=== PATIENT | female | born 1940 | race Caucasian/White ===

== ENCOUNTER 2022-11-09 05:25 | Day surgery (SDC) | payer MEDICARE, OTHER ==
[2022-11-09] VITALS (13 sets, daily range): BP systolic 95–161; BP diastolic 51–81; PULSE 73–96; TEMP 97.8–98.5
[~2022-11-09] VITALS: Ht 154.9 cm; Wt 65.5 kg
[~2022-11-09 05:25] MED LIST: PERCOCET 325 MG1 TAB PO
[2022-11-09] MEDS ORDERED: PHENERGAN25 MG RC (05:54)
--- NOTE | 2022-11-09 11:37 | NUR ---
Patient arrived to the unit from PACU at 1120. Patient drowsy but easily to arouse. Pulse present at right upper extremity. Sling and Ice pack applied to the shoulder. Patient rated pain level 7/10. Family at the bedside and oriented to room and the use of call acuna. Will continue to monitor patient. Call acuna within reach.
--- NOTE | 2022-11-09 12:44 | NUR ---
Patient resting comfortable and does not appear to be in a distress. VSS , family members at the bedside. Ice pack and sling in place.
--- NOTE | 2022-11-09 13:01 | NUR ---
Patient c/o feeling nauseous . Patient is not due for medication for n/v. Cool compress apply to the the neck. Patient is doing much better and carry on good conversation. Spirite offered per patient's request. Will continue to monitor patient.
--- NOTE | 2022-11-09 15:25 | NUR ---
Assisted patient to the bathroom to void. Patient tolerated it well/
--- NOTE | 2022-11-09 18:30 | NUR ---
Patient resting in bed using the incentive spirometer . No drainage noted on aquacell dressing to the right shoulder, sling in place. Patient voice no concern at this time.
--- NOTE | 2022-11-09 21:50 | NUR ---
SHIFT REPORT FROM RUBINA BROWNLEE. PATIENT IN BED ON ROOM ENTRY. ALERT AND ORIENTED. HS MEDS PER EMAR. R SHOULDER AQUACELL CDI. SLING IN PLACE. ICE IN PLACE. L FA IV PATENT AND FLUSHED. C/O SLIGHT HEADACHE, LIGHTS AND TV OFF. DENIES ADDITIONAL NEEDS. CALL LIGHT IN REACH.
[2022-11-10 03:26] VITALS: BP 109/53; PULSE 75; TEMP 98.3
[2022-11-10 06:12] LABS: HEMATOCRIT 33.2 % (37.0-47.0)
[2022-11-10 06:24] LABS: CREATININE, serum 1.11 mg/dL (0.57-1.11); POTASSIUM 4.7 mmol/L (3.5-4.5)
--- NOTE | 2022-11-10 06:46 | NUR ---
Received report from the night nurse, TORRIE Miranda
[2022-11-10 07:21] VITALS: BP 118/66; PULSE 87; TEMP 98.3
--- NOTE | 2022-11-10 07:26 | NUR ---
Patient c/o of severe pain at right shoulder and rated pain level 9/10. Patient received roxicodone 10mg at 0552 . 5mg of roxicodone administered at 0723. Will continue to assess patient's pain level. Ice pack apply to the affected area. Call acuna within reach.
--- NOTE | 2022-11-10 09:41 | NUR ---
Patient sitting up in a recliner by the bed. Patient c/o of right shoulder pain. Pulses present, sling in place. Ice pack wrapped around the shoulder with kalyan wrap to keep in place. Am meds administered and will continue to monitor patient. Call within reach.
[2022-11-10 11:31] VITALS: BP 118/83; PULSE 80; TEMP 98.5
--- NOTE | 2022-11-10 11:36 | NUR ---
Patient laying in bed moaning in pain c/o cramping at right shoulder, new scheduled order of roxicodone 15mg administered. See e-mar for notes. Ice pack in place at right shoulder.
[2022-11-10 15:18] VITALS: BP 129/60; PULSE 83; TEMP 98.7
--- NOTE | 2022-11-10 18:29 | NUR ---
Ambulated patient in the hallway after dinner at 1800. Patient tolerated it well with no episode of dizziness. Assisted patient back to bed and ice pack applied to the right shoulder.
[2022-11-10 19:35] VITALS: BP 140/59; PULSE 86; TEMP 99.2
--- NOTE | 2022-11-10 21:00 | NUR ---
ASSISTED PT TO BATHROOM, GAIT STEADY, DENIES DIZZINESS. BACK TO BED. HAS SLING ON TO RT ARM, AQUACELL DRSG X2 TO SHOULDER. REPLACED ICE PACK. HAS INT TO LFA. IS ALERT AND ORIENTED X4.
--- NOTE | 2022-11-10 22:58 | NUR ---
SCHEDULED ES TYLENOL AND OXYCODONE GIVEN AT THIS TIME FOR RT SHOULDER PAIN.
[2022-11-10 23:26] VITALS: BP 110/61; PULSE 79; TEMP 98.7
[2022-11-11 03:20] VITALS: BP 117/64; PULSE 76; TEMP 98.7
--- NOTE | 2022-11-11 04:59 | NUR ---
MEDICATED WITH SCHEDULED ES TYLENOL AND OXYCODONE.
[2022-11-11 06:25] LABS: HEMOGLOBIN 10.1 g/dl (12.5-16.0)
[2022-11-11 06:30] LABS: HEMATOCRIT 31.4 % (37.0-47.0)
[2022-11-11 06:35] LABS: CALCIUM 8.4 mg/dL (8.4-10.2); CREATININE, serum 0.95 mg/dL (0.57-1.11); POTASSIUM 4.2 mmol/L (3.5-4.5)
[2022-11-11 07:41] VITALS: BP 102/54; PULSE 72; TEMP 98
--- NOTE | 2022-11-11 07:45 | NUR ---
Pt. sitting up in bed. Pt. is A&OX3, assessment complete. INT to lt. forearm patent. Pt. up to the bathroom independently. Pt. then ambulated to the chair. Pt. reported pain at a 7 on pain scale. KAROLYN Avila called to see if we could change the toradol to the celebrex, new order revived. Will give per orders. Pt. denies further needs, call light within reach.
--- NOTE | 2022-11-11 11:08 | NUR ---
SW met with patient to complete intake. Patient states she lives [facility] with her Lorenzo Garcia. Patient states that she does not utilize DME, is independent with ADL's, and does not utilize HH services. PCP is Dr. Guerin, [facility] is [facility]. Patient states that her DPOA is her daughter Shelly Muñoz [phone]. Patient also provides that she will be staying with her daughter upon DC to assist with the care she may need. SW will continue to follow. DC plan: temporary stay with daughter upon DC
[2022-11-11 12:19] VITALS: BP 139/56; PULSE 78; TEMP 98.3
[2022-11-11] MEDS ORDERED: CELEBREX 200MG200 MG PO (14:07)
[2022-11-11] MEDS ORDERED: DOXYCYCLINE 10100 MG PO (14:07)
[2022-11-11] MEDS ORDERED: ZOFRAN ODT4 MG PO (14:08)
[2022-11-11] MEDS ORDERED: PERCOCET 325 MG1 TAB PO (14:08)
[2022-11-11] MEDS ORDERED: PHENERGAN25 MG RC (14:09)
--- NOTE | 2022-11-11 15:00 | NUR ---
Pt. ready to discharge. INT discontinued from lt. forearm. Dressing to rt. shoulder changed by KAROLYN Avila. Reviewed discharge paperwork with the pt. Pt. voices understanding. Pt. escorted out by TORRIE Bates.
== END 2022-11-11 15:00 | disposition home or self-care (01) ==
LOC: SDCO 05:25 → SURG 11:20 → SDCO 11-11 15:00
PROVIDERS: Orthopaedic Surgery
DX: M19.011 Primary osteoarthritis, right shoulder (principal); M75.121 Complete rotator cuff tear or rupture of right shoulder, not specified as traumatic; G89.18 Other acute postprocedural pain; D64.9 Anemia, unspecified; I95.9 Hypotension, unspecified; E87.5 Hyperkalemia; I10 Essential (primary) hypertension; Z87.891 Personal history of nicotine dependence
CPT/HCPCS: OP; A4619; A9284; C1713; C1776; J0690; J1100; J1170; J1580; J1885; J2270; J2405; J2550; J2704; J2795; J3010; J7120